=== PATIENT | male | born 1970 | race Two or more races ===

== ENCOUNTER 2022-10-24 23:52 | Emergency (ER) | payer OTHER ==
[~2022-10-24] VITALS: Ht 182.9 cm; Wt 119.3 kg
[2022-10-25] MEDS ORDERED: METFORMIN HCL1000 M3 PO (00:17)
[2022-10-25] MEDS ORDERED: LORAZEPAM2 MG PO (00:17)
[2022-10-25] MEDS ORDERED: ATORVASTATIN CA10 MG PO (00:17)
[2022-10-25] MEDS ORDERED: LISINOPRIL10 MG PO (00:17)
[2022-10-25] MEDS ORDERED: CIPRO500 MG PO (06:32)
== END 2022-10-25 06:46 ==
LOC: ER 23:52
DX: N39.0 Urinary tract infection, site not specified (principal); R30.0 Dysuria; I10 Essential (primary) hypertension; E11.9 Type 2 diabetes mellitus without complications; Z79.84 Long term (current) use of oral hypoglycemic drugs

== ENCOUNTER 2023-12-04 19:19 | Emergency (ER) | payer OTHER ==
[~2023-12-04] VITALS: Ht 182.9 cm; Wt 111.6 kg
[~2023-12-04 19:19] MED LIST: ATORVASTATIN CA10 MG PO; CIPRO500 MG PO; LISINOPRIL10 MG PO; LORAZEPAM2 MG PO; METFORMIN HCL1000 M3 PO
[2023-12-04] MEDS ORDERED: KETOROLAC TROMETHAMINE 60 MG VIAL IM ONE ×2 (20:00→20:12)
[2023-12-04 20:33] LABS: HEMATOCRIT 41.6 % (39.0-48.0); HEMOGLOBIN 14.5 g/dL (13-16.00); MEAN CELL VOLUME 89.7 fL (80.0-100.00); MEAN CORPUSCULAR HEMOGLOBIN 31.3 pg (27.00-32.0); MEAN CORPUSCULAR HGB CONC 34.8 g/dl (32.0-36.0); PLATELET COUNT 292 K/uL (150-450); RED BLOOD COUNT 4.64 M/uL (4.00-6.00); RED CELL DISTRIBUTION WIDTH 13.7 % (11.5-14.5)
== END 2023-12-04 22:11 | disposition home or self-care (01) ==
LOC: ER 19:20
PROVIDERS: General Practice
DX: F41.8 Other specified anxiety disorders (principal)
CPT/HCPCS: 36415; 71045; 96372; 99283; J1885